=== PATIENT | male | born 1985 | race Caucasian/White ===

== ENCOUNTER 2016-09-11 08:48 | Outpatient (CLI) | payer MEDICAID | END 2016-09-11 08:49 | disposition home or self-care (01) | DX: Z11.3 Encounter for screening for infections with a predominantly sexual mode of transmission (principal) ==

== ENCOUNTER 2016-10-20 12:04 | Outpatient (CLI) | payer MEDICAID | END 2016-10-20 23:59 | DX: Z53.9 Procedure and treatment not carried out, unspecified reason (principal) ==

== ENCOUNTER 2016-11-04 12:07 | Outpatient (CLI) | payer MEDICAID | END 2016-11-04 12:08 | disposition home or self-care (01) | DX: B80 Enterobiasis (principal) ==

== ENCOUNTER 2017-09-15 11:43 | Outpatient (CLI) | payer MEDICAID ==
[2017-09-15 18:54] LABS: BASOPHILS % (AUTO) 0.7 %; EOSINOPHILS # (AUTO) 0.3 10^3/uL (0.0-0.7); EOSINOPHILS % (AUTO) 4.8 %; LYMPHOCYTES # (AUTO) 1.2 10^3/uL (1.5-3.5); LYMPHOCYTES % (AUTO) 23.2 %; MEAN CORPUSCULAR HEMOGLOBIN 32.5 pg (27.0-31.0); MEAN CORPUSCULAR HGB CONC 33.7 g/dL (32.0-36.0); MEAN CORPUSCULAR VOLUME 96.5 fL (80.0-94.0); MEAN PLATELET VOLUME 9.5 fL (7.4-11.4); MONOCYTES # (AUTO) 0.3 10^3/uL (0.0-1.0); MONOCYTES % (AUTO) 5.8 %; NEUTROPHILS # (AUTO) 3.4 10^3/uL (1.5-6.6); NEUTROPHILS % (AUTO) 65.5 %; PLT - PLATELET COUNT 190 10^3/uL (130-450); RED BLOOD COUNT 4.31 10^6/uL (4.70-6.10); RED CELL DISTRIBUTION WIDTH 12.6 % (12.0-15.0); WHITE BLOOD COUNT 5.2 x10^3/uL (4.8-10.8)
[2017-09-15 19:19] LABS: ALBUMIN 4.5 g/dL (3.2-5.5); ALBUMIN/GLOBULIN RATIO 1.7 (1.0-2.2); ALKALINE PHOSPHATASE 61 IU/L (42-121); ALT ALANINE AMINOTRANSFERASE 39 IU/L (10-60); AST ASPARTATE AMINOTRANSFERASE 29 IU/L (10-42); BILIRUBIN,TOTAL 0.5 mg/dL (0.2-1.0); BUN - BLOOD UREA NITROGEN 12 mg/dL (6-20); CALCIUM 8.7 mg/dL (8.5-10.3); CARBON DIOXIDE - CO2 25 mmol/L (21-32); CHLORIDE 107 mmol/L (101-111); GFR - MDRD 87 (>89); GLUCOSE 106 mg/dL (70-100); SODIUM 139 mmol/L (135-145); TOTAL PROTEIN 7.1 g/dL (6.7-8.2)
== END 2017-09-15 11:44 | disposition home or self-care (01) ==
LOC: LAB.N 11:43
PROVIDERS: ATTEND Physician Assistant Medical
DX: K60.0 Acute anal fissure (principal); L29.0 Pruritus ani
CPT/HCPCS: 36415; 80050

== ENCOUNTER 2017-09-17 08:00 | Outpatient (CLI) | payer MEDICAID ==
[2017-09-17 19:51] LABS: FOLATE 19.14 ng/mL (5.90 - >24.8)
== END 2017-09-17 08:01 | disposition home or self-care (01) ==
LOC: LAB.N 08:00
PROVIDERS: ATTEND Physician Assistant Medical
DX: D53.9 Nutritional anemia, unspecified (principal)
CPT/HCPCS: 36415; 82607; 82746

== ENCOUNTER 2019-08-09 13:06 | Emergency (ER) | payer MEDICAID ==
[2019-08-09] MEDS ORDERED: HYDROmorphone 1 MG/ML CARPUJECT IM STA (13:23)
[2019-08-09] MEDS ORDERED: KETOROLAC 60 MG/2 ML VIAL IM STA (13:23)
--- NOTE | 2019-08-09 13:27 | ED Physician Documentation ---
PD HPI BACK INJURY - Stated complaint Stated Complaint: BACK PX - History obtained from History obtained from: Patient - History of Present Illness Location: Upper (Gradual onset pain between the shoulder blades yesterday without injury. Is worse if he twists or bends or flexes the neck although no primary neck pain. He denies fevers, chills, shortness of breath. He has a chronic cough that is not worse than usual. No abdominal pain. No changes with eating. No nausea or vomiting. No recent travel, leg pain, calf pain, pedal edema, history of DVT or PE.) Review of Systems Constitutional: denies: Fever, Chills Cardiac: denies: Chest pain / pressure, Palpitations Respiratory: denies: Dyspnea, Cough GI: denies: Abdominal Pain, Nausea, Vomiting PD PAST MEDICAL HISTORY - Past Surgical History Past Surgical History: Yes - Present Medications Home Medications: Ambulatory Orders Medication Instructions Recorded Confirmed Hydrocodone/Acetaminophen 1 - 2 each PO Q6H PRN #14 tablet 08/09/19 [Hydrocodon-Acetaminophen 5-325] - Allergies Allergies/Adverse Reactions: Allergies Allergy/AdvReac Type Severity Reaction Status Date / Time No Known Drug Allergies Allergy Verified 08/09/19 13:10 - Social History Does the pt smoke?: Yes Smoking Status: Current every day smoker Does the pt drink ETOH?: Yes PD ED PE NORMAL - Vitals Vital signs reviewed: Yes - General General: Alert and oriented X 3, No acute distress - HEENT HEENT: PERRL, EOMI - Neck Neck: Supple, no meningeal sign, No bony TTP - Cardiac Cardiac: RRR, No murmur - Respiratory Respiratory: No respiratory distress, Clear bilaterally - Abdomen Abdomen: Non tender - Back Back: No spinal TTP, Other (I am unable to re-create muscular tenderness of the back, he points to the medial sides of both shoulder blades as the site of pain. He does wince with twisting or bending.) - Neuro Neuro: Alert and oriented X 3, Normal speech Results - Vitals Vitals: Vital Signs - 24 hr 08/09/19 13:10 Temperature 36.7 C Heart Rate 80 Respiratory 18 Rate Blood Pressure 138/93 H O2 Saturation 97 Oxygen O2 Source Room air - Rads (name of study) 2v chest Radiology: EMP read contemporaneously (normal) PD MEDICAL DECISION MAKING - ED course ED course: I considered pulmonary embolism in this patient. Clinically the pretest probability of pulmonary embolism is less than 15%. I applied to the PERC rules as follows: The patient's age is under 50, heart rate less than 100, oxygen saturation greater than 94%, the patient does not have a history of DVT or PE. Patient has no recent trauma or surgery. The patient has no hemoptysis. The patient is not on exogenous estrogens. The patient does not have clinical signs suggesting DVT. As such the patient ruled out for pulmonary embolism by PERC criteria. I considered aortic dissection in this patient. The patient has a much more likely alternative diagnosis. The patient has equal radial and pedal pulses and has no neurologic symptoms. Departure - Departure Disposition: 01 Home, Self Care Clinical Impression: Back pain Qualifiers: Back pain location: thoracic back pain Chronicity: acute Back pain laterality: midline Qualified Code(s): M54.6 - Pain in thoracic spine Condition: Good Record reviewed to determine appropriate education?: Yes Instructions: ED Neck Back Pain General Prescriptions: Hydrocodone/Acetaminophen [Hydrocodon-Acetaminophen 5-325] 1 - 2 each PO Q6H PRN #14 tablet PRN Reason: pain Comments: Call your doctor to arrange a follow-up appointment, make the next available appointment. In the interim, return anytime if worse or if new symptoms develop. Do not drink or drive while taking narcotic pain medication. Note that many narcotic pain relievers also contain Tylenol/acetaminophen. Please ensure that your total dose of acetaminophen from all sources does not exceed 3 g (3000 mg) per day. You may get constipated while on this medication. Take a stool softener such as Colace twice a day while you are on it. Also add an jevh-aqw-ycjduzk laxative such as senna or MiraLAX on any day that you do not have a bowel movement. If you received a narcotic pain medication or sedative while in the emergency department, do not drive for the next 24 hours. Your blood pressure was elevated today on check into the emergency department. This does not mean that you have hypertension, it is a common phenomenon to come to the emergency department and have elevated blood pressure. I recommend that you see your primary care physician within the week to have it rechecked when you are feeling better. Forms: Activity restrictions
--- NOTE | 2019-08-09 13:57 | XRAY Report ---
Reason: upper back pain Procedure Date: 08/09/2019 Accession Number: [id number] / [id number] Procedure: XR - Chest 2 View X-Ray CPT Code: 77961 Final Report FULL RESULT: EXAM: CHEST RADIOGRAPHY EXAM DATE: 08/09/2019 01:37 PM. CLINICAL HISTORY: Upper Back Pain. COMPARISON: None. TECHNIQUE: 2 views. FINDINGS: Lungs/Pleura: No focal opacities evident. No pleural effusion. No pneumothorax. Normal volumes. Mediastinum: Heart and mediastinal contours are unremarkable. Other: The visualized thoracic spine shows no compression fractures or significant malalignment. IMPRESSION: No acute disease evident. RADIA
[2019-08-09 14:17] VITALS: BP 131/93
== END 2019-08-09 14:32 | disposition home or self-care (01) ==
LOC: ED 13:06
DX: M54.6 Pain in thoracic spine (principal); R03.0 Elevated blood-pressure reading, without diagnosis of hypertension; F17.200 Nicotine dependence, unspecified, uncomplicated
CPT/HCPCS: 71046; 96372; 99283; 99284; J1170

== ENCOUNTER 2020-01-22 17:59 | Emergency (ER) | payer MEDICAID ==
[2020-01-22 18:06] VITALS: BP 160/100
[2020-01-22 18:36] LABS: RAPID STREP SCREEN Negative (Negative)
--- NOTE | 2020-01-22 18:50 | XRAY Report ---
PROCEDURE: Neck Soft Tissue INDICATIONS: L sided neck pain TECHNIQUE: 2 views of the neck were acquired. COMPARISON: None FINDINGS: Airway: The airway appears patent. Soft tissues: Prevertebral soft tissues are normal in thickness. The epiglottis and aryepiglottic f olds appear normal. No soft tissue gas. Bones: No suspicious bony lesions. Visualized cervical spine is normally aligned. IMPRESSION: Negative examination. Reviewed by: Blanche Stanley MD on 01/22/2020 6:49 PM PDT Approved by: Blanche Stanley MD on 01/22/2020 6:49 PM PDT Station ID: [id number]
--- NOTE | 2020-01-22 18:52 | ED Physician Documentation ---
History of Present Illness - Stated complaint Stated Complaint: NECK PX - Chief complaint Chief Complaint: Heent - History obtained from History obtained from: Patient - History of Present Illness Timing: Today Pain level max: 5 Pain level now: 4 - Additonal information Additional information: Patient complains of a sore throat for the last week, especially in the left side. Worse with swallowing, nothing makes it better. No fevers. No cough. Does use marijuana. Mild rhinorrhea. No congestion. No cough. No vomiting. No tonsillar exudates. Review of Systems Constitutional: denies: Fever, Chills GI: denies: Vomiting, Diarrhea Skin: denies: Rash Musculoskeletal: denies: Neck pain, Back pain Neurologic: denies: Headache PD PAST MEDICAL HISTORY - Past Medical History Past Medical History: No - Past Surgical History Past Surgical History: Yes - Present Medications Home Medications: Ambulatory Orders Medication Instructions Recorded Confirmed Hydrocodone/Acetaminophen 1 - 2 each PO Q6H PRN #14 tablet 08/09/19 [Hydrocodon-Acetaminophen 5-325] - Allergies Allergies/Adverse Reactions: Allergies Allergy/AdvReac Type Severity Reaction Status Date / Time No Known Drug Allergies Allergy Verified 01/22/20 18:02 - Social History Does the pt smoke?: Yes Smoking Status: Current every day smoker Does the pt drink ETOH?: Yes PD ED PE NORMAL - Vitals Vital signs reviewed: Yes - General General: Alert and oriented X 3, No acute distress - HEENT HEENT: Moist mucous membranes, Other (Mild posterior oropharyngeal erythema without tonsillar exudates. Uvula midline. Normal phonation. No trismus. No stridor.) - Neck Neck: Supple, no meningeal sign, No adenopathy, No JVD, No bruit - Cardiac Cardiac: RRR, No murmur - Respiratory Respiratory: No respiratory distress, Clear bilaterally - Abdomen Abdomen: Soft, Non tender, Non distended - Derm Derm: Warm and dry, No rash - Neuro Neuro: Alert and oriented X 3 Results - Vitals Vitals: Vital Signs - 24 hr 01/22/20 18:02 Temperature 37.0 C Heart Rate 87 Respiratory 14 Rate Blood Pressure 160/100 H O2 Saturation 98 Oxygen O2 Source Room air - Labs Labs: Laboratory Tests 01/22/20 18:13 Group A Strep Rapid Negative - Rads (name of study) Soft tissue x-ray of the neck Radiology: Prelim report reviewed, EMP read contemporaneously, See rad report (Normal) PD MEDICAL DECISION MAKING - ED course Complexity details: reviewed results, re-evaluated patient, considered differential, d/w patient ED course: 34-year-old male with what appears to be pharyngitis. Likely viral. Well- appearing, nontoxic. Afebrile. No evidence of retropharyngeal abscess on soft tissue neck. No evidence of pneumomediastinum. No peritonsillar abscess. Given dexamethasone. We will continue supportive care and have him follow-up with his doctor. Rapid strep is negative. Patient counseled regarding signs and symptoms for which I believe and urgent re-evaluation would be necessary. Patient with good understanding of and agreement to plan and is comfortable going home at this time This document was made in part using voice recognition software. While efforts are made to proofread this document, sound alike and grammatical errors may occur. Departure - Departure Disposition: 01 Home, Self Care Clinical Impression: Pharyngitis Qualifiers: Pharyngitis/tonsillitis etiology: unspecified etiology Qualified Code(s): J02.9 - Acute pharyngitis, unspecified Condition: Good Instructions: ED Pharyngitis Viral Follow-Up: [facility] [Provider Group] - Within 1 week Comments: The cause of your symptoms is unclear today. Follow-up with your doctor for further care. They may want to refer you to an learning technologies specialist. You were given a dose of dexamethasone today which is a steroid which should help any inflammation. Your x-ray is normal and your rapid strep test is negat jw. Discharge Date/Time: 01/22/20 19:19
[2020-01-22] MEDS ORDERED: DEXAMETHASONE 10 MG/ML VIAL PO STA (18:53)
== END 2020-01-22 19:19 | disposition home or self-care (01) ==
LOC: ED 17:59
DX: J02.9 Acute pharyngitis, unspecified (principal); F17.200 Nicotine dependence, unspecified, uncomplicated
CPT/HCPCS: 70360; 87070; 87430; 99284